=== PATIENT | female | born 2000 | race Caucasian/White ===

== ENCOUNTER 2024-07-20 11:58 | Outpatient (CLI) | payer OTHER | END 2024-07-20 11:59 | disposition home or self-care (01) | LOC: BICULT 11:58 | PROVIDERS: ATTEND Family Medicine | DX: Z34.93 Encounter for supervision of normal pregnancy, unspecified, third trimester (principal); Z3A.37 37 weeks gestation of pregnancy | CPT/HCPCS: 76815 ==